=== PATIENT | female | born 2000 | race Caucasian/White ===

== ENCOUNTER 2024-02-13 09:00 | Inpatient (IN) | payer MEDICAID ==
[~2024-02-13] VITALS: Ht 162.6 cm; Wt 97.5 kg
[2024-02-13] MEDS: SODIUM CHLORIDE 0.9% (SEPSIS BOLUS) IV ONE (09:57)
[2024-02-13] MEDS: AMPICILLIN SOD/SULBACTAM NA 3 G in SODIUM CHLORIDE 0.9% 100 ML IV ONE (10:00)
[2024-02-13 10:16] LABS: BASOPHILS % 0.2 % (0.0-2.0); EOSINOPHILS % 0.1 % (0.0-5.0); HEMATOCRIT. 41.5 % (36.0-48.0); HEMOGLOBIN. 14.3 g/dL (12.0-16.0); LYMPHOCYTES % 12.4 % (20.0-50.0); MEAN CORPUSCULAR HGB CONC 34.6 g/dL (31.0-37.0); MEAN CORPUSCULAR VOLUME 89.8 fL (81.0-99.0); MEAN PLATELET VOLUME 8.6 fl (7.4-10.4); MONOCYTES % 6.9 % (2.0-8.0); NEUTROPHILS % 80.4 % (40.0-76.0); PLATELET 206 x1000/uL (130-400); RED BLOOD CELL COUNT 4.62 mill/uL (4.2-5.4); RED CELL DISTRIBUTION WIDTH 12.5 % (11.6-14.6); WHITE BLOOD COUNT 7.2 x1000/uL (4.5-11.0)
[2024-02-13 10:18] LABS: DIFFERENTIAL COMMENT 1
[2024-02-13 10:23] LABS: CHLORIDE 103 mEq/L (98-107); POTASSIUM 3.5 mEq/L (3.5-5.1); SODIUM 136 mEq/L (136-145)
[2024-02-13 10:24] LABS: CALCIUM 9.1 mg/dL (8.7-10.4); CARBON DIOXIDE 24 mEq/L (21-32)
[2024-02-13 10:29] LABS: CREATININE 1.1 mg/dL (0.6-1.0); GLUCOSE 109 mg/dL (70-105); UREA NITROGEN BLOOD 9 mg/dL (9-23)
[2024-02-13 10:31] LABS: ALANINE AMINOTRANSFERASE 34 IU/L (10-49); ALBUMIN 4.7 g/dL (3.2-4.8); ASPARTATE AMINOTRANSFERASE 33 IU/L (<34); BILIRUBIN DIRECT 0.2 mg/dL (<=3.0); BILIRUBIN TOTAL 0.4 mg/dL (0.1-1.0); PROTEIN TOTAL 8.1 g/dL (6.0-8.3)
[2024-02-13 10:38] LABS: PROTHROMBIN TIME 11.3 sec (9.6-11.0)
[2024-02-13 10:41] LABS: HCG SCREEN NEGATIVE
[2024-02-13] MEDS ORDERED: DOCUSATE SODIUM 100MG CAPSULE PO PRN (11:30)
[2024-02-13] MEDS ORDERED: ONDANSETRON HCL 4MG/2ML INJ IV PRN (11:30)
[2024-02-13] MEDS ORDERED: IPRATROPIUM/ALBUTEROL 0.5-3(2.5)MG/3ML NEB HHN PRN (11:30)
[2024-02-13] MEDS ORDERED: ACETAMINOPHEN 325MG TABLET PO PRN (11:30)
[2024-02-13 11:34] LABS: CLARITY URINE CLEAR (CLEAR); COLOR URINE YELLOW (YELLOW); GLUCOSE URINE NEGATIVE (NEGATIVE); KETONES URINE 2+ (NEGATIVE); LEUKOCYTE ESTERASE URINE TRACE (NEGATIVE); NITRITE URINE NEGATIVE (NEGATIVE); OCCULT BLOOD URINE 2+ (NEGATIVE); PH URINE 5.5 (4.5-8.0); PROTEIN URINE 1+ (NEGATIVE); SPECIFIC GRAVITY URINE 1.021 (1.005-1.030); UROBILINOGEN URINE 0.2 E.U./dL (0.2-1.0)
[2024-02-13 12:04] LABS: SQUAMOUS EPITHELIAL CELL URINE 3+ /lpf (RARE/1+)
[2024-02-13 12:05] LABS: MUCUS URINE TRACE /lpf (< = 2+)
[2024-02-13 12:06] LABS: BACTERIA URINE 1+; RBC URINE 0-2 /hpf (0-2); WBC URINE 0-2 /hpf (0-2)
[2024-02-13] MEDS: SODIUM CHLORIDE 0.9% 1,000 ML IV SCH (12:32)
[2024-02-13] MEDS ORDERED: AZITHROMYCIN 500MG/250ML 250 ML IV NR (13:30)
[2024-02-13 13:31] VITALS: PULSE 125; RESP 13; O2SAT 96
[2024-02-13] MEDS: IPRATROPIUM/ALBUTEROL 0.5-3(2.5)MG/3ML NEB HHN SCH (13:31)
[2024-02-13] MEDS: CEFTRIAXONE 1GM/50ML 50 ML IV NR (13:53)
[2024-02-13] MEDS: AZITHROMYCIN 500MG/250ML 250 ML IV SCH (13:54)
[2024-02-13] MEDS: ACETAMINOPHEN 325MG TABLET PO PRN (18:17)
[2024-02-13] MEDS: GUAIFENESIN 200MG/10ML SUGAR FREE UDC PO PRN (18:17)
[2024-02-13 20:00] VITALS: BP 120/64; PULSE 111; RESP 18; TEMP 36.78072; O2SAT 96
[2024-02-13 20:01] VITALS: BP 120/64; PULSE 111; RESP 18; TEMP 36.8072
[2024-02-13] MEDS ORDERED: AMOXICILLIN/POTASSIUM CLAVULANATE 500/125MG TAB PO SCH (21:00)
[2024-02-13] MEDS: FAMOTIDINE 20MG TABLET PO SCH (21:47)
[2024-02-13 22:00] VITALS: PULSE 111; RESP 18
[2024-02-14] VITALS (9 sets, daily range): BP systolic 107–143; BP diastolic 64–93; PULSE 102–128; RESP 18–24; TEMP 36.61404–37.16964; O2SAT 94–100
[2024-02-14 07:28] LABS: CHLORIDE 108 mEq/L (98-107); POTASSIUM 3.8 mEq/L (3.5-5.1); SODIUM 139 mEq/L (136-145)
[2024-02-14 07:29] LABS: CALCIUM 8.3 mg/dL (8.7-10.4); CARBON DIOXIDE 22 mEq/L (21-32)
[2024-02-14 07:33] LABS: BASOPHILS % 0.3 % (0.0-2.0); EOSINOPHILS % 0.5 % (0.0-5.0); HEMATOCRIT. 35.6 % (36.0-48.0); HEMOGLOBIN. 12.1 g/dL (12.0-16.0); LYMPHOCYTES % 30.9 % (20.0-50.0); MEAN CORPUSCULAR HEMOGLOBIN 30.8 pg (28.0-32.0); MEAN CORPUSCULAR HGB CONC 34.1 g/dL (31.0-37.0); MEAN CORPUSCULAR VOLUME 90.3 fL (81.0-99.0); MEAN PLATELET VOLUME 8.6 fl (7.4-10.4); MONOCYTES % 10.4 % (2.0-8.0); NEUTROPHILS % 57.9 % (40.0-76.0); PLATELET 176 x1000/uL (130-400); RED BLOOD CELL COUNT 3.94 mill/uL (4.2-5.4); RED CELL DISTRIBUTION WIDTH 12.4 % (11.6-14.6); WHITE BLOOD COUNT 6.6 x1000/uL (4.5-11.0)
[2024-02-14 07:34] LABS: CREATININE 0.8 mg/dL (0.6-1.0); GLUCOSE 90 mg/dL (70-105)
[2024-02-14 08:13] LABS: UREA NITROGEN BLOOD < 5 mg/dL (9-23)
[2024-02-14] MEDS: FAMOTIDINE 20MG TABLET PO SCH (16:35)
[2024-02-14] MEDS: BUDESONIDE 0.5MG/2ML NEB HHN SCH (20:51)
[2024-02-15] VITALS (8 sets, daily range): BP systolic 112–128; BP diastolic 66–86; PULSE 92–110; RESP 18–22; TEMP 36.22512–36.72516; O2SAT 93–100
[2024-02-15 06:58] LABS: HEMATOCRIT 34.6 % (36.0-48.0); HEMOGLOBIN 12.1 g/dL (12.0-16.0); MEAN CORPUSCULAR HEMOGLOBIN 31.2 pg (28.0-32.0); MEAN CORPUSCULAR HGB CONC 35.1 g/dL (31.0-37.0); MEAN CORPUSCULAR VOLUME 89.1 fL (81.0-99.0); PLATELET 167 x1000/uL (130-400); RED BLOOD CELL COUNT 3.88 mill/uL (4.2-5.4); RED CELL DISTRIBUTION WIDTH 12.7 % (11.6-14.6); WHITE BLOOD COUNT 4.5 x1000/uL (4.5-11.0)
[2024-02-15 07:09] LABS: CHLORIDE 108 mEq/L (98-107); POTASSIUM 3.6 mEq/L (3.5-5.1); SODIUM 142 mEq/L (136-145)
[2024-02-15 07:10] LABS: CALCIUM 8.6 mg/dL (8.7-10.4); CARBON DIOXIDE 25 mEq/L (21-32)
[2024-02-15 07:15] LABS: CREATININE 0.6 mg/dL (0.6-1.0); GLUCOSE 93 mg/dL (70-105); UREA NITROGEN BLOOD 6 mg/dL (9-23)
[2024-02-15] MEDS ORDERED: P20 PO (14:03)
[2024-02-15] MEDS ORDERED: ALBU90AE INH (14:03)
[2024-02-15] MEDS ORDERED: BUDE90AE3 INH (14:03)
== END 2024-02-15 16:00 | disposition home or self-care (01) | DRG 141 ==
LOC: ER 09:00 → 5WST 10:31 → 6WST 02-14 14:33
PROVIDERS: ADMIT Internal Medicine; ATTEND Internal Medicine
DX: J45.901 Unspecified asthma with (acute) exacerbation (principal); E87.1 Hypo-osmolality and hyponatremia; E11.9 Type 2 diabetes mellitus without complications; J06.9 Acute upper respiratory infection, unspecified; E66.01 Morbid (severe) obesity due to excess calories; Z68.36 Body mass index [BMI] 36.0-36.9, adult
CPT/HCPCS: 36415; 71045; 80048; 80061; 80076; 81003; 83036; 83605; 83735; 84145; 84703; 85025; 85027; 93005; 94640; 99291; J0295; J0456; J0696; J7030; J7050; J7626